=== PATIENT | male | born 1975 | race Two or more races ===

== ENCOUNTER 2017-10-11 19:35 | Emergency (ER) | payer SELFPAY ==
[~2017-10-11] VITALS: Ht 177.8 cm; Wt 90.7 kg
[2017-10-11] MEDS ORDERED: KETOROLAC TROMETH 30 MG/ML 1ML VIAL IV ONE (20:15)
[2017-10-11] MEDS ORDERED: HYDROmorphone HCL 2 MG/ML VL IV ONE (20:15)
[2017-10-11] MEDS ORDERED: ONDANSETRON HCL 4 MG/2 ML VIAL IV ONE (20:15)
[2017-10-11 20:24] LABS: Basophils # (auto) 0 uL; Eosinophils # (auto) 0 uL; Eosinophils % (auto) 0.2 % (0.0-7.0); Hematocrit 42.8 % (41.0-53.0); Hemoglobin 14.5 g/dL (13.5-17.5); Lymphocytes # (auto) 1.4 uL; Lymphocytes % (auto) 7.4 % (10.0-50.0); Mean Corpuscular Hemoglobin 29.1 pg (28.0-32.0); Mean Corpuscular Hgb Conc. 33.9 g/dL (32.0-36.0); Mean Corpuscular Volume 85.9 fL (80.0-100.0); Monocytes # (auto) 0.9 uL; Monocytes % (auto) 4.8 % (0.0-12.0); Neutrophils # (auto) 17.1 uL; Neutrophils % (auto) 87.6 % (37.0-80.0); Platelet Count (auto) 308 10^3/uL (140-450); Red Blood Cells 4.99 10^6/uL (4.5-5.90); White Blood Cell 19.6 10^3/uL (4.4-10.8)
[2017-10-11 20:25] VITALS: BP 148/73
[2017-10-11 20:39] LABS: Albumin 3.8 g/dL (3.4-5.0); Calcium 8.8 mg/dL (8.5-10.1); Potassium 4.2 mmol/L (3.5-5.1)
[2017-10-11 20:42] LABS: Bilirubin, Total 0.4 mg/dL (0.2-1.0)
[2017-10-11 20:43] LABS: Partial Thromboplastin Time 28.7 sec (23.78-33.04); Prothrombin Time 10.7 sec (9.27-12.13)
[2017-10-11 21:13] LABS: Urine Bacteria NONE SEEN /hpf (None Seen); Urine Blood 3+ /uL (Negative); Urine Specific Gravity 1.027 (1.001-1.035); Urine WBC 4 /hpf (0 - 3)
== END 2017-10-11 22:12 | disposition home or self-care (01) ==
LOC: ER 19:35
DX: N20.1 Calculus of ureter (principal); N23 Unspecified renal colic
CPT/HCPCS: 36415; 74176; 80053; 81001; 82150; 83690; 85025; 85610; 85730; 96374; 96375; 99285; J1885; J2405